=== PATIENT | male | born 1965 | race Caucasian/White ===

== ENCOUNTER 2016-06-15 15:27 | Emergency (ER) | payer MEDICAID ==
[~2016-06-15] VITALS: Ht 185.4 cm; Wt 60.0 kg
[~2016-06-15 15:27] MED LIST: PROM25TA5 PO
[2016-06-15 15:29] VITALS: PULSE 97; RESP 16; TEMP 98; O2SAT 94
[2016-06-15] MEDS ORDERED: KETOROLAC TROMETHAMINE 60 MG/2 ML (IM) VIAL IM ONE (15:45)
--- NOTE | 2016-06-15 15:48 | PD ---
HPI Chief Complaint: Respiratory Symptoms Time Seen by Provider: 15:35 Travel History International Travel<30 days: No Contact w/Intl Traveler<30days: No Traveled to known affect area: No History of Present Illness HPI Unusual 51-year-old man presents emergent department with multiple complaints. He states he's been "disabled" since from headaches nausea vomiting trouble breathing. He smokes about a pack of cigarettes a day. He states he been diagnosed with schizophrenia in the past. He states since May the headaches have gotten more frequent, more persistent, with shortness of breath and nausea. He was seen in the emergency department at the end of May and had labs done x-rays done and was given a prescription for nausea medicine. He states he still having symptoms. The been progressive. It's worse and is typically had it together 49 years of his life. History Past Medical History Narrative Medical Asthma Hypertension Headache Patient states she had some tenderness skin cancer on his rectum and colon Social History Alcohol Use: Yes (states occ) Tobacco Use: Yes (CIGARETTES, 1 PPD) Allergies-Medications (Allergen,Severity, Reaction): Coded Allergies: No Known Allergies (Verified , 06/15/16) Reported Meds & Prescriptions Reported Meds & Active Scripts Active Phenergan (Promethazine HCl) 25 Mg Tab 25 Mg PO Q6H PRN Review of Systems Except as stated in HPI: all other systems reviewed are Neg Physical Exam Narrative GENERAL: Disheveled bizarre 51-year-old man, no acute distress. SKIN: Warm and dry. HEAD: Atraumatic. Normocephalic. CARDIOVASCULAR: Regular rate and rhythm. No murmur appreciated. RESPIRATORY: Normal rate and effort. Mild diffuse wheezing. GASTROINTESTINAL: Abdomen soft, non-tender, nondistended. Hepatic and splenic margins not palpable. MUSCULOSKELETAL: No obvious deformities. No edema. NEUROLOGICAL: Awake and alert. No obvious cranial nerve deficits. Motor grossly within normal limits. Normal speech. Data Data Last Documented VS Vital Signs Date Time Temp Pulse Resp B/P Pulse Ox O2 Delivery O2 Flow Rate FiO2 06/15/16 15:40 99 16 96 Room Air 06/15/16 15:29 98.0 MDM Medical Decision Making Medical Screen Exam Complete: Yes Emergency Medical Condition: Yes Differential Diagnosis Headaches, asthma, COPD, other Narrative Course Medical decision making 51-year-old male presents emergency Department with acute on chronic headaches, shortness of breath, nausea. He looks fine. His minimal wheezing. He is still smoking. Chest x-ray previously showed some COPD changes. Is asking for something for his headache and for nausea. Diagnosis Primary Impression: Headache Qualified Code: R51 - Chronic nonintractable headache, unspecified headache type Additional Impression: Nausea Additional Instructions: Take Naprosyn as needed for headache. Use Zofran as needed for nausea or vomiting. Stop smoking. Med/Other Pt SpecificInfo: Prescription(s) given Disposition: 01 DISCHARGE HOME Condition: Stable Devon Olsen MD Jun 15, 2016 15:48
[2016-06-15] MEDS ORDERED: ZOFR4TAB3 SL (15:49)
[2016-06-15] MEDS ORDERED: NAPR500 PO (15:49)
== END 2016-06-15 16:09 | disposition home or self-care (01) ==
LOC: PHED 15:27
DX: R51 Headache (principal); I10 Essential (primary) hypertension; F17.210 Nicotine dependence, cigarettes, uncomplicated
CPT/HCPCS: 96372; 99283; J1885

== ENCOUNTER 2016-07-03 19:21 | Emergency (ER) | payer MEDICAID ==
[~2016-07-03] VITALS: Ht 185.4 cm; Wt 60.3 kg
[~2016-07-03 19:21] MED LIST changes: +NAPR500 PO; +ZOFR4TAB3 SL
[2016-07-03 19:40] VITALS: BP 147/114; PULSE 98; RESP 20; TEMP 97.7; O2SAT 99
[2016-07-03] MEDS ORDERED: SODIUM CHLOR 0.9% 1000 ML INJ 1,000 ML IV SCH ×2 (20:24→21:15)
--- NOTE | 2016-07-03 20:24 | PD ---
HPI Chief Complaint: GI Complaint Time Seen by Provider: 20:21 Travel History International Travel<30 days: No Contact w/Intl Traveler<30days: No Traveled to known affect area: No History of Present Illness HPI The patient is a 51-year-old homeless male alcoholic who states he has had generalized weakness and nausea for 3 months. It is cold outside and he came into the emergency room, likely to warm up. He has not been vomiting today. He denies any abdominal pain this time. PFSH Past Medical History Hx Anticoagulant Therapy: Yes (81mg asa) Asthma: Yes Anxiety: Yes Depression: Yes Cancer: Yes (colorectal; lung) Cardiovascular Problems: Yes (HTN) Cerebrovascular Accident: Yes (tia 1989) Diminished Hearing: No Headaches: Yes Hypertension: Yes Respiratory: Yes (lung ca; asthma) Immunizations Current: Yes Past Surgical History Appendectomy: Yes Social History Alcohol Use: Yes (states occ) Tobacco Use: Yes (CIGARETTES, 1 PPD) Substance Use: No Allergies-Medications (Allergen,Severity, Reaction): Coded Allergies: No Known Allergies (Verified , 07/03/16) Reported Meds & Prescriptions Reported Meds & Active Scripts Active Phenergan (Promethazine HCl) 25 Mg Tab 25 Mg PO Q6H PRN Review of Systems Except as stated in HPI: all other systems reviewed are Neg Physical Exam Narrative GENERAL: The patient is alert, oriented 3 in no apparent distress. His vital signs show blood pressure 147/114 but otherwise normal. He smells slightly of beer and strongly of tobacco. He does not appear clinically intoxicated. SKIN: Warm and dry. HEAD: Atraumatic. Normocephalic. EYES: Pupils equal and round. No scleral icterus. No injection or drainage. ENT: No nasal bleeding or discharge. Mucous membranes pink and moist. NECK: Trachea midline. No JVD. CARDIOVASCULAR: Regular rate and rhythm. No murmur appreciated. RESPIRATORY: No accessory muscle use. Clear to auscultation. Breath sounds equal bilaterally. GASTROINTESTINAL: Abdomen soft, non-tender, nondistended. Hepatic and splenic margins not palpable. No guarding or rebound is present. MUSCULOSKELETAL: No obvious deformities. No clubbing. No cyanosis. No edema. NEUROLOGICAL: Awake and alert. No obvious cranial nerve deficits. Motor grossly within normal limits. Normal speech. PSYCHIATRIC: Appropriate mood and affect; insight and judgment normal. Data Data Last Documented VS Vital Signs Date Time Temp Pulse Resp B/P Pulse Ox O2 Delivery O2 Flow Rate FiO2 07/03/16 21:47 82 18 106/67 98 Room Air 07/03/16 19:40 97.7 Orders Alcohol (Ethanol) (07/03/16 20:24) Complete Blood Count With Diff (07/03/16 20:24) Comprehensive Metabolic Panel (07/03/16 20:24) Thiamine Inj (Thiamine Inj) (07/03/16 20:30) Sodium Chlor 0.9% 1000 Ml Inj (Ns 1000 M (07/03/16 20:24) Sodium Chlor 0.9% 1000 Ml Inj (Ns 1000 M (07/03/16 21:15) Prochlorperazine Inj (Compazine Inj) (07/03/16 21:30) Lipase (07/03/16 20:30) Labs Laboratory Tests Test 07/03/16 20:30 White Blood Count 6.4 TH/MM3 Red Blood Count 4.91 MIL/MM3 Hemoglobin 15.3 GM/DL Hematocrit 44.3 % Mean Corpuscular Volume 90.2 FL Mean Corpuscular Hemoglobin 31.2 PG Mean Corpuscular Hemoglobin 34.6 % Concent Red Cell Distribution Width 12.1 % Platelet Count 277 TH/MM3 Mean Platelet Volume 6.6 FL Neutrophils (%) (Auto) 70.4 % Lymphocytes (%) (Auto) 16.1 % Monocytes (%) (Auto) 10.1 % Eosinophils (%) (Auto) 2.9 % Basophils (%) (Auto) 0.5 % Neutrophils # (Auto) 4.6 TH/MM3 Lymphocytes # (Auto) 1.0 TH/MM3 Monocytes # (Auto) 0.6 TH/MM3 Eosinophils # (Auto) 0.2 TH/MM3 Basophils # (Auto) 0.0 TH/MM3 CBC Comment DIFF FINAL Differential Comment Sodium Level 136 MEQ/L Potassium Level 3.7 MEQ/L Chloride Level 98 MEQ/L Carbon Dioxide Level 29.4 MEQ/L Anion Gap 9 MEQ/L Blood Urea Nitrogen 2 MG/DL Creatinine 0.52 MG/DL Estimat Glomerular Filtration 169 ML/MIN Rate Random Glucose 88 MG/DL Calcium Level 8.1 MG/DL Total Bilirubin 0.6 MG/DL Aspartate Amino Transf 16 U/L (AST/SGOT) Alanine Aminotransferase 14 U/L (ALT/SGPT) Alkaline Phosphatase 89 U/L Total Protein 6.1 GM/DL Albumin 2.9 GM/DL Lipase 100 U/L Ethyl Alcohol Level 19 MG/DL MDM Medical Decision Making Medical Screen Exam Complete: Yes Emergency Medical Condition: Yes Medical Record Reviewed: Yes Interpretation(s) The complete metabolic profile shows a calcium of 8.1 and total protein of 6.1 and albumen of 2.9 but is otherwise unremarkable. The CBC is normal. Alcohol level is only 19. The lipase is normal. Differential Diagnosis Alcohol intoxication, pancreatitis, electrolyte disorder, malingering to obtain a hospital bed, gastritis Narrative Course The patient appears to have a gastritis. He will be given Phenergan for nausea. He has been hydrated with saline here tonight. He will need to stay away from alcohol. Diagnosis Primary Impression: Alcoholic gastritis Additional Impression: Alcohol abuse Additional Instructions: Discontinue alcohol. Alcohol irritates your stomach and reduces its resistance to stomach acid. Follow-up with a primary care physician next week. If worse, return to emergency department. Med/Other Pt SpecificInfo: Prescription(s) given Scripts Promethazine (Phenergan)25 Mg Tab25 Mg PO Q6H PRN (Nausea/Vomiting) #28 TAB Ref 0 Prov:Danielito Vargas MD 07/03/16 Disposition: 01 DISCHARGE HOME Condition: Stable Danielito Vargas MD Jul 03, 2016 20:23
[2016-07-03] MEDS ORDERED: THIAMINE INJ 100 MG in SODIUM CHLORIDE 0.9% INJ 100 ML IV ONE (20:30)
[2016-07-03 20:42] LABS: AUTOMATED NEUTROPHIL # 4.6 TH/MM3 (1.8-7.7); BASOPHIL % 0.5 % (0.0-2.0); EOSINOPHIL # 0.2 TH/MM3 (0-0.4); EOSINOPHIL % 2.9 % (0.0-4.0); HEMATOCRIT 44.3 % (39.0-51.0); HEMO FLAGS DIFF FINAL; LYMPH % 16.1 % (9.0-44.0); MEAN CELL VOLUME 90.2 FL (80.0-100.0); MEAN CORPUSCULAR HEMOGLOBIN 31.2 PG (27.0-34.0); MEAN CORPUSCULAR HGB CONC 34.6 % (32.0-36.0); MONO % 10.1 % (0.0-8.0); NEUT % 70.4 % (16.0-70.0); PLATELET COUNT 277 TH/MM3 (150-450); RED BLOOD COUNT 4.91 MIL/MM3 (4.50-5.90); RED CELL DISTRIBUTION WIDTH 12.1 % (11.6-17.2); WHITE BLOOD COUNT 6.4 TH/MM3 (4.0-11.0)
[2016-07-03 20:46] VITALS: BP 104/66; PULSE 90; RESP 18; O2SAT 98
[2016-07-03 20:49] LABS: CHLORIDE 98 MEQ/L (98-107); POTASSIUM 3.7 MEQ/L (3.5-5.1); SODIUM (NA) 136 MEQ/L (136-145)
[2016-07-03 20:53] LABS: ANION GAP 9 MEQ/L (5-15); BICARBONATE 29.4 MEQ/L (21.0-32.0); BLOOD UREA NITROGEN 2 MG/DL (7-18)
[2016-07-03 20:56] LABS: ALT (GPT) 14 U/L (12-78); AST (GOT) 16 U/L (15-37); GLOMERULAR FILTRATION RATE 169 ML/MIN (>89)
[2016-07-03 20:57] LABS: TOTAL BILIRUBIN ADULT 0.6 MG/DL (0.2-1.0)
[2016-07-03 20:59] LABS: ALKALINE PHOSPHATASE 89 U/L (45-117)
[2016-07-03] MEDS ORDERED: PROCHLORPERAZINE INJ 10 MG/2 ML VIAL IVS ONE (21:30)
[2016-07-03] MEDS ORDERED: PROM25TA5 PO (21:34)
[2016-07-03 21:47] VITALS: BP 106/67; PULSE 82; RESP 18; O2SAT 98
== END 2016-07-03 22:08 | disposition home or self-care (01) ==
LOC: PHED 19:21
DX: K29.20 Alcoholic gastritis without bleeding (principal); F10.10 Alcohol abuse, uncomplicated; I10 Essential (primary) hypertension; F17.200 Nicotine dependence, unspecified, uncomplicated; Z59.0 Homelessness; Z79.82 Long term (current) use of aspirin; Z87.09 Personal history of other diseases of the respiratory system; Z86.59 Personal history of other mental and behavioral disorders; Z86.73 Personal history of transient ischemic attack (TIA), and cerebral infarction without residual deficits; Z85.038 Personal history of other malignant neoplasm of large intestine; Z85.118 Personal history of other malignant neoplasm of bronchus and lung
CPT/HCPCS: 80053; 80320; 83690; 85025; 96361; 96365; 96375; 99284; J0780; J3411; J7030

== ENCOUNTER 2016-12-10 13:30 | Emergency (ER) | payer MEDICAID ==
[~2016-12-10] VITALS: Ht 185.4 cm; Wt 53.0 kg
[~2016-12-10 13:30] MED LIST changes: -NAPR500 PO; -ZOFR4TAB3 SL
[2016-12-10 13:37] VITALS: BP 109/64; PULSE 92; RESP 16; TEMP 98.3; O2SAT 97
--- NOTE | 2016-12-10 14:12 | PD ---
HPI Chief Complaint: Respiratory Symptoms Time Seen by Provider: 14:11 Travel History International Travel<30 days: No Contact w/Intl Traveler<30days: No Traveled to known affect area: No History of Present Illness HPI Patient presents for prescription refill. States he is a chronic cough which he takes an albuterol MDI for, continues to smoke. Reports a past medical history of asthma, headaches, colorectal and lung cancer, history of TIA, depression and hypertension. Also requesting Fioricet for headache, Zofran for nausea and Naprosyn for general aches and pains. States she's been out of his medications for several months. He does not see a doctor regularly. PFSH Past Medical History Hx Anticoagulant Therapy: Yes (81mg asa) Asthma: Yes Anxiety: Yes Depression: Yes Cancer: Yes (colorectal; lung) Cardiovascular Problems: Yes (HTN) Cerebrovascular Accident: Yes (tia 1989) Diminished Hearing: No Headaches: Yes Hypertension: Yes Respiratory: Yes (asthma) Immunizations Current: Yes Tetanus Vaccination: < 5 Years Influenza Vaccination: Yes ?: Not Past Surgical History Appendectomy: Yes Social History Alcohol Use: Yes (states occ) Tobacco Use: Yes (CIGARETTES, 1 PPD) Substance Use: No Allergies-Medications (Allergen,Severity, Reaction): Coded Allergies: No Known Allergies (Verified , 12/10/16) Reported Meds & Prescriptions Reported Meds & Active Scripts Active Review of Systems General / Constitutional: No: Fever Eyes: No: Visual changes HENT: Positive: Headaches Cardiovascular: No: Chest Pain or Discomfort Respiratory: No: Shortness of Breath Gastrointestinal: Positive: Nausea, No: Abdominal Pain Genitourinary: No: Dysuria Musculoskeletal: No: Pain Skin: No Rash Neurologic: No: Weakness Psychiatric: No: Depression Endocrine: No: Polydipsia Hematologic/Lymphatic: No: Easy Bruising Physical Exam Narrative GENERAL: Poorly nourished, poorly developed patient. Disheveled and ungroomed, unkempt SKIN: Focused skin assessment warm/dry. HEAD: Normocephalic. EYES: No scleral icterus. No injection or drainage. NECK: Supple, trachea midline. No JVD or lymphadenopathy. CARDIOVASCULAR: Regular rate and rhythm without murmurs, gallops, or rubs. RESPIRATORY: Poor breath sounds. No accessory muscle use. GASTROINTESTINAL: Abdomen soft, non-tender, nondistended. MUSCULOSKELETAL: No cyanosis, or edema. BACK: Nontender without obvious deformity. No CVA tenderness. Data Data Last Documented VS Vital Signs Date Time Temp Pulse Resp B/P Pulse Ox O2 Delivery O2 Flow Rate FiO2 12/10/16 13:37 98.3 92 16 109/64 97 MDM Medical Decision Making Medical Screen Exam Complete: Yes Emergency Medical Condition: Yes Differential Diagnosis Failure to thrive, progressive colon and lung cancer, medication refill Narrative Course Assessment and plan discussed with patient at bedside Diagnosis Primary Impression: Headache Qualified Code: R51 - Nonintractable headache, unspecified chronicity pattern , unspecified headache type Additional Impression: Nausea Patient Instructions: General Instructions Additional Instructions: Patient doesn't appear as if he is seeking help if the past medical history is correct. Discussed several options to him if the cancer progresses and is no longer able to take care of himself. Encouraged to return to emergency room with any onset of new symptoms. Med/Other Pt SpecificInfo: Prescription(s) given Scripts Promethazine (Phenergan)25 Mg Oqdspe45 Mg PO Q6H PRN (NAUSEA OR VOMITING) #30 TAB Ref 1 Prov:Laith Singleton MD 12/10/16 Tniiqunrka-Ebcztdopmogov-Naspmzyc (Fioricet)50-300-40 Mg Cap1-2 Cap PO Q6H PRN ( HEADACHE) #30 CAP Ref 1 Prov:Laith Singleton MD 12/10/16 Albuterol 18 GM Inh (Ventolin Hfa 18 GM Inh)90 Mcg/Act Aer2 Puff INH Q4-6H PRN ( SHORTNESS OF BREATH) #1 INHALER Ref 3 Prov:Laith Singleton MD 12/10/16 Disposition: 01 DISCHARGE HOME Condition: Good Laith Singleton MD Dec 10, 2016 14:12
[2016-12-10] MEDS ORDERED: VENTAER INH (14:24)
[2016-12-10] MEDS ORDERED: BUTA1CAP PO (14:24)
[2016-12-10] MEDS ORDERED: PROM25TA10 PO (14:24)
== END 2016-12-10 14:54 | disposition home or self-care (01) ==
LOC: PHED 13:30
DX: R51 Headache (principal); R11.0 Nausea; M79.1 Myalgia; R05 Cough; I10 Essential (primary) hypertension; F17.200 Nicotine dependence, unspecified, uncomplicated; Z79.82 Long term (current) use of aspirin; Z87.09 Personal history of other diseases of the respiratory system; Z86.59 Personal history of other mental and behavioral disorders; Z85.038 Personal history of other malignant neoplasm of large intestine; Z86.79 Personal history of other diseases of the circulatory system; Z76.0 Encounter for issue of repeat prescription
CPT/HCPCS: 99284

== ENCOUNTER 2017-03-19 18:04 | Emergency (ER) | payer MEDICAID ==
[~2017-03-19] VITALS: Ht 185.4 cm; Wt 59.6 kg
[~2017-03-19 18:04] MED LIST changes: +BUTA1CAP PO; +PROM25TA10 PO; -PROM25TA5 PO; +VENTAER INH
[2017-03-19 18:13] VITALS: BP 137/69; PULSE 97; RESP 18; TEMP 98.6; O2SAT 95
[2017-03-19 19:11] VITALS: BP 119/78; PULSE 92; RESP 18; O2SAT 97
[2017-03-19] MEDS ORDERED: SODIUM CHLOR 0.9% 1000 ML INJ 1,000 ML IV SCH (19:14)
[2017-03-19] MEDS ORDERED: SODIUM CHLORIDE 0.9% FLUSH 10 ML FLUSH IVF PRN (19:15)
--- NOTE | 2017-03-19 19:19 | PD ---
HPI Chief Complaint: Respiratory Symptoms Time Seen by Provider: 19:08 Travel History International Travel<30 days: No Contact w/Intl Traveler<30days: No Traveled to known affect area: No History of Present Illness HPI The patient is a 52-year-old homeless alcoholic who also abuses tobacco at one pack a day and has a history of COPD who complains of shortness of breath for several months. He was just discharged from [facility] at the beginning of this month for COPD with acute exacerbation. He does not think he has had any fever. He states his last drink was beer this afternoon. He also complains of dizziness. He denies any chest pain. He does have a history of alcohol gastritis. PFSH Past Medical History Hx Anticoagulant Therapy: Yes (81mg asa) Asthma: Yes Anxiety: Yes Depression: Yes Cancer: Yes (colorectal; lung) Cardiovascular Problems: Yes (HTN) Cerebrovascular Accident: Yes (tia 1989) Diminished Hearing: No Headaches: Yes Hypertension: Yes Respiratory: Yes (asthma) Immunizations Current: Yes Past Surgical History Appendectomy: Yes Social History Alcohol Use: Yes (states [facility]) Tobacco Use: Yes (CIGARETTES, 1 PPD) Substance Use: No Allergies-Medications (Allergen,Severity, Reaction): Coded Allergies: No Known Allergies (Verified , 03/19/17) Reported Meds & Prescriptions Reported Meds & Active Scripts Active Ventolin Hfa 18 GM Inh (Albuterol Sulfate) 90 Mcg/Act Aer 2 Puff INH Q4-6H PRN Review of Systems Except as stated in HPI: all other systems reviewed are Neg Physical Exam Narrative GENERAL: The patient is alert, oriented 3, smells slightly of beer and tobacco. His vital signs are normal. SKIN: Focused skin assessment warm/dry. HEAD: Atraumatic. Normocephalic. EYES: Pupils equal and round. No scleral icterus. No injection or drainage. ENT: No nasal bleeding or discharge. Mucous membranes pink and moist. NECK: Trachea midline. No JVD. CARDIOVASCULAR: Regular rate and rhythm. No murmur appreciated. RESPIRATORY: No accessory muscle use. Scattered rhonchi are heard bilaterally in all lung [place]. Breath sounds equal bilaterally. GASTROINTESTINAL: Abdomen soft, non-tender, nondistended. Hepatic and splenic margins not palpable. No guarding or rebound is present. MUSCULOSKELETAL: No obvious deformities. No clubbing. No cyanosis. No edema. NEUROLOGICAL: Awake and alert. No obvious cranial nerve deficits. Motor grossly within normal limits. Normal speech. PSYCHIATRIC: Appropriate mood and affect; insight and judgment normal. Data Data Last Documented VS Vital Signs Date Time Temp Pulse Resp B/P (MAP) Pulse Ox O2 Delivery O2 Flow Rate FiO2 03/19/17 19:56 92 16 108/72 (84) 96 Room Air 03/19/17 18:13 98.6 Orders Orders Complete Blood Count With Diff (03/19/17 19:14) Comprehensive Metabolic Panel (03/19/17 19:14) Magnesium (Mg) (03/19/17 19:14) Urinalysis - C+S If Indicated (03/19/17 19:14) Iv Access Insert/Monitor (03/19/17 19:14) Ecg Monitoring (03/19/17 19:14) Oximetry (03/19/17 19:14) Oxygen Administration (03/19/17 19:14) Chest, Pa & Lat (03/19/17 19:14) Sodium Chloride 0.9% Flush (Ns Flush) (03/19/17 19:15) Albuterol-Ipratropium Neb (Duoneb Neb) (03/19/17 19:15) Lipase (03/19/17 19:14) Sodium Chlor 0.9% 1000 Ml Inj (Ns 1000 M (03/19/17 19:14) Alcohol (Ethanol) (03/19/17 19:14) Labs Laboratory Tests Test 03/19/17 19:36 White Blood Count 7.8 TH/MM3 Red Blood Count 4.77 MIL/MM3 Hemoglobin 14.7 GM/DL Hematocrit 43.4 % Mean Corpuscular Volume 91.1 FL Mean Corpuscular Hemoglobin 30.8 PG Mean Corpuscular Hemoglobin Concent 33.8 % Red Cell Distribution Width 13.7 % Platelet Count 168 TH/MM3 Mean Platelet Volume 6.9 FL Neutrophils (%) (Auto) 57.0 % Lymphocytes (%) (Auto) 24.8 % Monocytes (%) (Auto) 12.2 % Eosinophils (%) (Auto) 1.6 % Basophils (%) (Auto) 4.4 % Neutrophils # (Auto) 4.5 TH/MM3 Lymphocytes # (Auto) 1.9 TH/MM3 Monocytes # (Auto) 1.0 TH/MM3 Eosinophils # (Auto) 0.1 TH/MM3 Basophils # (Auto) 0.3 TH/MM3 CBC Comment DIFF FINAL Differential Comment Urine Color YELLOW Urine Turbidity CLEAR Urine pH 7.0 Urine Specific [place] 1.005 Urine Protein NEG mg/dL Urine Glucose (UA) NEG mg/dL Urine Ketones NEG mg/dL Urine Occult Blood NEG Urine Nitrite NEG Urine Bilirubin NEG Urine Leukocyte Esterase NEG Urine Squamous Epithelial Cells 0-5 /hpf Microscopic Urinalysis Comment CULT NOT INDICATED Blood Urea Nitrogen 2 MG/DL Creatinine 0.48 MG/DL Random Glucose 75 MG/DL Total Protein 7.1 GM/DL Albumin 3.4 GM/DL Calcium Level 8.8 MG/DL Magnesium Level 2.0 MG/DL Alkaline Phosphatase 103 U/L Aspartate Amino Transf (AST/SGOT) 24 U/L Alanine Aminotransferase (ALT/SGPT) 23 U/L Total Bilirubin 1.7 MG/DL Sodium Level 130 MEQ/L Potassium Level 3.8 MEQ/L Chloride Level 94 MEQ/L Carbon Dioxide Level 26.1 MEQ/L Anion Gap 10 MEQ/L Estimat Glomerular Filtration Rate 184 ML/MIN Lipase 161 U/L Ethyl Alcohol Level 45 MG/DL [facility] Medical Decision Making Medical Screen Exam Complete: Yes Emergency Medical Condition: Yes Medical Record Reviewed: Yes Interpretation(s) The chest x-ray shows hyperinflation with bullous changes which are stable, no acute disease. The urinalysis is normal. The CBC is normal. The complete metabolic profile shows a sodium of 1:30, total bilirubin 1.7 but is otherwise normal. The alcohol level is 45. The lipase is normal. Differential Diagnosis COPD with acute exacerbation, alcohol intoxication, hypoxemia, hypomagnesemia, electrolyte disorder, malingering to obtain bed Narrative Course The patient has COPD with acute exacerbation. He is likely also malingering to obtain a bed. While he was asleep his oximetry was 98% on room air. He continues to abuse alcohol and tobacco. He will need to discontinue both. He also needs to follow-up with a primary care physician. Diagnosis Primary Impression: COPD exacerbation Additional Impressions: Alcohol abuse Malingering Additional Instructions: You should try to discontinue alcohol and tobacco. You should also follow-up with a primary care physician. Med/Other Pt SpecificInfo: No Change to Meds Disposition: 01 DISCHARGE HOME Condition: Stable Danielito Vargas MD Mar 19, 2017 19:19
[2017-03-19] MEDS: RESP: ALBUTEROL 2.5 MG/IPRATROPIUM 0.5 MG NEB (SCH) INH ×3 (19:24→19:46)
[2017-03-19 19:56] VITALS: BP 108/72; PULSE 92; RESP 16; O2SAT 96
[2017-03-19 20:11] LABS: AUTOMATED NEUTROPHIL # 4.5 TH/MM3 (1.8-7.7); BASOPHIL # 0.3 TH/MM3 (0-0.2); BASOPHIL % 4.4 % (0.0-2.0); EOSINOPHIL # 0.1 TH/MM3 (0-0.4); EOSINOPHIL % 1.6 % (0.0-4.0); HEMATOCRIT 43.4 % (39.0-51.0); HEMO FLAGS DIFF FINAL; LYMPH % 24.8 % (9.0-44.0); LYMPHOCYTE # 1.9 TH/MM3 (1.0-4.8); MEAN CELL VOLUME 91.1 FL (80.0-100.0); MEAN CORPUSCULAR HEMOGLOBIN 30.8 PG (27.0-34.0); MEAN CORPUSCULAR HGB CONC 33.8 % (32.0-36.0); MONO % 12.2 % (0.0-8.0); PLATELET COUNT 168 TH/MM3 (150-450); RED BLOOD COUNT 4.77 MIL/MM3 (4.50-5.90); RED CELL DISTRIBUTION WIDTH 13.7 % (11.6-17.2); WHITE BLOOD COUNT 7.8 TH/MM3 (4.0-11.0)
[2017-03-19 20:13] LABS: BLOOD, URINE NEG (NEG); GLUCOSE,URINE NEG (NEG); KETONE, URINE NEG (NEG); NITRITE,URINE NEG (NEG)
[2017-03-19 20:18] LABS: CHLORIDE 94 MEQ/L (98-107); POTASSIUM 3.8 MEQ/L (3.5-5.1); SODIUM (NA) 130 MEQ/L (136-145)
[2017-03-19 20:19] LABS: URINE COLOR YELLOW (YELLW/STRAW)
--- NOTE | 2017-03-19 20:20 | RADRPT ---
EXAM DATE/TIME: 03/19/2017 19:27 [facility] COMPARISON: CHEST PA & LAT, June 02, 2016, 22:54. INDICATIONS : Short of breath. Congestion. MEDICAL HISTORY : Chronic obstructive pulmonary disease. Emphysema. Hypertension. Skin cancer . Carcinoma, lung. SURGICAL HISTORY : Appendectomy. ENCOUNTER: Initial ACUITY: 3 days PAIN SCORE: 0/10 LOCATION: Bilateral chest FINDINGS: PA and lateral views of the chest demonstrate the lungs to be markedly hyperinflated COPD with bullou s changes in the left lung without evidence of mass, infiltrate or effusion. The cardiomediastinal c ontours are unremarkable. Osseous structures are intact. CONCLUSION: on March 19, 2017 at 20:18 No acute disease. No significant change has occurred. Marked hyperinflation with bullous changes which are stable Board Certified Radiologist. This report was verified electronically.
[2017-03-19 20:22] LABS: ANION GAP 10 MEQ/L (5-15); BICARBONATE 26.1 MEQ/L (21.0-32.0); BLOOD UREA NITROGEN 2 MG/DL (7-18)
[2017-03-19 20:23] LABS: COMMENT (UR) CULT NOT INDICATED; CULTURE IF INDICATED CULT NOT INDICATED; SQUAMOUS EPITHELIAL CELL URINE 0-5 /hpf (0-5)
[2017-03-19 20:25] LABS: ALT (GPT) 23 U/L (12-78); AST (GOT) 24 U/L (15-37); GLOMERULAR FILTRATION RATE 184 ML/MIN (>89)
[2017-03-19 20:26] LABS: ALCOHOL 45 MG/DL (0-5); TOTAL BILIRUBIN ADULT 1.7 MG/DL (0.2-1.0)
[2017-03-19 20:28] LABS: ALKALINE PHOSPHATASE 103 U/L (45-117)
[2017-03-19 20:53] VITALS: BP 118/70
== END 2017-03-19 21:01 | disposition home or self-care (01) ==
LOC: PHED 18:04
DX: J44.1 Chronic obstructive pulmonary disease with (acute) exacerbation (principal); F17.210 Nicotine dependence, cigarettes, uncomplicated; F10.10 Alcohol abuse, uncomplicated; Y90.2 Blood alcohol level of 40-59 mg/100 ml
CPT/HCPCS: 71020; 80053; 80307; 81001; 83690; 83735; 85025; 94640; 94664; 96360; 99284; J7030

== ENCOUNTER 2017-06-27 17:05 | Emergency (ER) | payer MEDICAID ==
[~2017-06-27] VITALS: Ht 185.4 cm; Wt 61.0 kg
[~2017-06-27 17:05] MED LIST changes: -BUTA1CAP PO; -PROM25TA10 PO
[2017-06-27 17:11] VITALS: BP 106/72; PULSE 82; RESP 16; TEMP 97.7; O2SAT 94
--- NOTE | 2017-06-27 18:54 | PD ---
HPI Chief Complaint: Headache Time Seen by Provider: 18:48 Travel History International Travel<30 days: No Contact w/Intl Traveler<30days: No Traveled to known affect area: No History of Present Illness HPI 52-year-old male here with complaints of headache, cough, generalized malaise. He tells me he was seen by emergency physician at [facility] and was told that he has fluid on his lungs and that he should be on an antibiotic, however he is not taking this medication. He tells me that he has had a headache for 2 weeks and he has tried drinking alcohol to help with his headaches, however this is not working. No fevers. No trauma. No chest pain or dyspnea. No abdominal pain. Denies illicit drug use. PFSH Past Medical History Hx Anticoagulant Therapy: No Asthma: Yes Anxiety: Yes Depression: Yes Cancer: Yes (colorectal; lung) Cardiovascular Problems: Yes Cerebrovascular Accident: Yes (tia 1989) Diminished Hearing: No Headaches: Yes Hypertension: Yes Respiratory: Yes (asthma) Immunizations Current: Yes Past Surgical History Appendectomy: Yes Social History Alcohol Use: Yes ([facility]) Tobacco Use: Yes (CIGARETTES, 1 PPD) Substance Use: No Allergies-Medications (Allergen,Severity, Reaction): Coded Allergies: No Known Allergies (Verified Adverse Reaction, Unknown, 06/27/17) Reported Meds & Prescriptions Reported Meds & Active Scripts Active Ventolin Hfa 18 GM Inh (Albuterol Sulfate) 90 Mcg/Act Aer 2 Puff INH Q4-6H PRN Review of Systems Except as stated in HPI: all other systems reviewed are Neg Physical Exam Narrative GENERAL: Well-developed, well-nourished, disheveled, comfortable, no apparent distress. SKIN: Focused skin assessment warm/dry. HEAD: Atraumatic. Normocephalic. EYES: Pupils equal, round, 3 mm, reactive to light. EOMI. No scleral icterus. No injection or drainage. ENT: No nasal bleeding or discharge. Mucous membranes pink and moist. NECK: Trachea midline. No JVD. No nuchal rigidity. CARDIOVASCULAR: Regular rate and rhythm. RESPIRATORY: No accessory muscle use. Clear to auscultation. Breath sounds equal bilaterally. GASTROINTESTINAL: Abdomen soft, non-tender, nondistended. MUSCULOSKELETAL: No obvious deformities. No clubbing. No cyanosis. No edema. NEUROLOGICAL: Awake and alert. No obvious cranial nerve deficits. Motor grossly within normal limits. Normal speech. No focal deficits. PSYCHIATRIC: Appropriate mood and affect; insight and judgment normal. Data Data Last Documented VS Vital Signs Date Time Temp Pulse Resp B/P (MAP) Pulse Ox O2 Delivery O2 Flow Rate FiO2 06/27/17 22:30 81 16 121/79 (93) 96 Room Air 06/27/17 17:11 97.7 Orders Orders Complete Blood Count With Diff (06/27/17 18:51) Comprehensive Metabolic Panel (06/27/17 18:51) Prothrombin Time / Inr (Pt) (06/27/17 18:51) Act Partial Throm Time (Ptt) (06/27/17 18:51) Iv Access Insert/Monitor (06/27/17 18:51) Ecg Monitoring (06/27/17 18:51) Oximetry (06/27/17 18:51) Sodium Chloride 0.9% Flush (Ns Flush) (06/27/17 19:00) Alcohol (Ethanol) (06/27/17 18:51) Ct Brain W/O Iv Contrast(Rout) (06/27/17 ) Ketorolac Inj (Toradol Inj) (06/27/17 19:00) Metoclopramide Inj (Reglan Inj) (06/27/17 19:00) Influenzae A/B Antigen (06/27/17 18:51) Sodium Chlor 0.9% 1000 Ml Inj (Ns 1000 M (06/27/17 19:45) Chest, Single Ap (06/27/17 ) Sodium Chlor 0.9% 1000 Ml Inj (Ns 1000 M (06/27/17 21:30) Basic Metabolic Panel (Bmp) (06/27/17 21:19) Ed Discharge Order (06/27/17 23:09) Labs Laboratory Tests Test 06/27/17 19:20 06/27/17 22:25 White Blood Count 8.8 TH/MM3 Red Blood Count 4.96 MIL/MM3 Hemoglobin 14.9 GM/DL Hematocrit 44.6 % Mean Corpuscular Volume 90.0 FL Mean Corpuscular Hemoglobin 30.0 PG Mean Corpuscular Hemoglobin Concent 33.3 % Red Cell Distribution Width 12.1 % Platelet Count 270 TH/MM3 Mean Platelet Volume 6.6 FL Neutrophils (%) (Auto) 77.6 % Lymphocytes (%) (Auto) 12.1 % Monocytes (%) (Auto) 7.4 % Eosinophils (%) (Auto) 1.8 % Basophils (%) (Auto) 1.1 % Neutrophils # (Auto) 6.8 TH/MM3 Lymphocytes # (Auto) 1.1 TH/MM3 Monocytes # (Auto) 0.6 TH/MM3 Eosinophils # (Auto) 0.2 TH/MM3 Basophils # (Auto) 0.1 TH/MM3 CBC Comment DIFF FINAL Differential Comment Prothrombin Time 10.9 SEC Prothromb Time International Ratio 1.1 RATIO Activated Partial Thromboplast Time 29.9 SEC Blood Urea Nitrogen 3 MG/DL 2 MG/DL Creatinine 0.48 MG/DL 0.50 MG/DL Random Glucose 77 MG/DL 70 MG/DL Total Protein 6.7 GM/DL Albumin 3.3 GM/DL Calcium Level 8.4 MG/DL 7.7 MG/DL Alkaline Phosphatase 101 U/L Aspartate Amino Transf (AST/SGOT) 28 U/L Alanine Aminotransferase (ALT/SGPT) 21 U/L Total Bilirubin 0.8 MG/DL Sodium Level 127 MEQ/L 130 MEQ/L Potassium Level 3.6 MEQ/L 4.0 MEQ/L Chloride Level 91 MEQ/L 98 MEQ/L Carbon Dioxide Level 25.6 MEQ/L 24.6 MEQ/L Anion Gap 10 MEQ/L 7 MEQ/L Estimat Glomerular Filtration Rate 184 ML/MIN 176 ML/MIN Ethyl Alcohol Level 85 MG/DL MDM Medical Decision Making Medical Screen Exam Complete: Yes Emergency Medical Condition: Yes Medical Record Reviewed: Yes Differential Diagnosis Tension headache, cluster headache, migraine headache, SAH/meningitis/ encephalitis less likely, influenza, pneumonia, pleural effusion, malingering Narrative Course Vital signs reviewed. CBC is unremarkable. CMP is remarkable for sodium 127, chloride 91, otherwise unremarkable. Alcohol level is 85. Hyponatremia is likely secondary to beer consumption. He was given 2 L normal saline IV and repeat sodium is 130. He is not altered, and has had hyponatremia in the past. Influenza is negative. CT head: Normal exam. Chest x-ray: Fibrotic changes in the lungs. Emphysema. No effusion or pneumothorax. Patient was given 2 L normal saline IV, IV Reglan, and IV Toradol, and on reassessment he is sleeping comfortably. He is in no acute distress. He is stable for discharge home with outpatient follow-up with a primary care physician this week. He was advised on when to return to the emergency department. He verbalizes understanding and agreement with plan. Diagnosis Primary Impression: Alcohol abuse Additional Impressions: Headache Qualified Codes: R51 - Headache Hyponatremia Referrals: [facility] 3 days Additional Instructions: Follow-up with a primary care physician this week. Return to the emergency department for worsening symptoms or any other concerns. Disposition: 01 DISCHARGE HOME Condition: Stable Adebayo Mcintosh MD Jun 27, 2017 18:54
[2017-06-27] MEDS ORDERED: METOCLOPRAMIDE HCL 10 MG/2 ML VIAL IV PUSH ONE (19:00)
[2017-06-27] MEDS ORDERED: SODIUM CHLORIDE 0.9% FLUSH 10 ML FLUSH IV FLUSH PRN (19:00)
[2017-06-27] MEDS ORDERED: KETOROLAC TROMETHAMINE 30 MG/ML (IVP) VIAL IV PUSH ONE (19:00)
[2017-06-27 19:04] VITALS: BP 126/81; PULSE 85; RESP 16; O2SAT 95
[2017-06-27 19:28] LABS: AUTOMATED NEUTROPHIL # 6.8 TH/MM3 (1.8-7.7); BASOPHIL # 0.1 TH/MM3 (0-0.2); BASOPHIL % 1.1 % (0.0-2.0); EOSINOPHIL # 0.2 TH/MM3 (0-0.4); EOSINOPHIL % 1.8 % (0.0-4.0); HEMATOCRIT 44.6 % (39.0-51.0); HEMOGLOBIN 14.9 GM/DL (13.0-17.0); LYMPH % 12.1 % (9.0-44.0); LYMPHOCYTE # 1.1 TH/MM3 (1.0-4.8); MEAN CORPUSCULAR HGB CONC 33.3 % (32.0-36.0); MEAN PLATELET VOLUME 6.6 FL (7.0-11.0); MONO % 7.4 % (0.0-8.0); MONOCYTE # 0.6 TH/MM3 (0-0.9); NEUT % 77.6 % (16.0-70.0); PLATELET COUNT 270 TH/MM3 (150-450); RED BLOOD COUNT 4.96 MIL/MM3 (4.50-5.90); RED CELL DISTRIBUTION WIDTH 12.1 % (11.6-17.2); WHITE BLOOD COUNT 8.8 TH/MM3 (4.0-11.0)
[2017-06-27 19:36] LABS: CHLORIDE 91 MEQ/L (98-107); SODIUM (NA) 127 MEQ/L (136-145)
[2017-06-27 19:39] LABS: ALBUMIN 3.3 GM/DL (3.4-5.0); CALCIUM 8.4 MG/DL (8.5-10.1)
[2017-06-27 19:40] LABS: BICARBONATE 25.6 MEQ/L (21.0-32.0); BLOOD UREA NITROGEN 3 MG/DL (7-18); GLUCOSE,RANDOM 77 MG/DL (74-106)
[2017-06-27 19:41] LABS: INTERNATIONAL NORMALIZED RATIO 1.1 RATIO; PROTHROMBIN TIME - PATIENT 10.9 SEC (9.8-11.6)
[2017-06-27 19:42] LABS: ALT (GPT) 21 U/L (12-78); AST (GOT) 28 U/L (15-37)
[2017-06-27 19:43] LABS: CREATININE 0.48 MG/DL (0.60-1.30); GLOMERULAR FILTRATION RATE 184 ML/MIN (>89)
[2017-06-27 19:44] LABS: TOTAL BILIRUBIN ADULT 0.8 MG/DL (0.2-1.0); TOTAL PROTEIN 6.7 GM/DL (6.4-8.2)
[2017-06-27 19:45] LABS: ALKALINE PHOSPHATASE 101 U/L (45-117)
[2017-06-27] MEDS ORDERED: SODIUM CHLOR 0.9% 1000 ML INJ 1,000 ML IV ONE ×2 (19:45→21:30)
[2017-06-27 20:10] VITALS: BP 104/63; PULSE 81; RESP 16; O2SAT 95
--- NOTE | 2017-06-27 20:54 | RADRPT ---
EXAM DATE/TIME: 06/27/2017 20:31 [facility] COMPARISON: No previous studies available for comparison. INDICATIONS : Cephalgia. RADIATION DOSE: 64.68 CTDIvol (mGy) MEDICAL HISTORY : Cerebrovascular disease. Hypertension. Carcinoma, lung. SURGICAL HISTORY : None. ENCOUNTER: Initial ACUITY: 1 day PAIN SCALE: 4/10 LOCATION: cranial TECHNIQUE: Multiple contiguous axial images were obtained of the head. Using automated exposure control and adj ustment of the mA and/or kV according to patient size, radiation dose was kept as low as reasonably a chievable to obtain optimal diagnostic quality images. DICOM format image data is available electro nically for review and comparison. FINDINGS: CEREBRUM: The ventricles are normal for age. No evidence of midline shift, mass lesion, hemorrhage or acute in farction. No extra-axial fluid collections are seen. POSTERIOR FOSSA: The cerebellum and brainstem are intact. The 4th ventricle is midline. The cerebellopontine angle i s unremarkable. EXTRACRANIAL: The visualized portion of the orbits is intact. SKULL: The calvaria is intact. No evidence of skull fracture. CONCLUSION: Normal examination for a patient of this age. Angel Burton MD on June 27, 2017 at 20:51 Board Certified Radiologist. This report was verified electronically.
--- NOTE | 2017-06-27 20:59 | RADRPT ---
EXAM DATE/TIME: 06/27/2017 20:00 [facility] COMPARISON: CHEST PA & LAT, March 19, 2017, 19:27. INDICATIONS : Cough. MEDICAL HISTORY : None. SURGICAL HISTORY : None. ENCOUNTER: Initial ACUITY: 1 day PAIN SCORE: 0/10 LOCATION: Bilateral chest FINDINGS: Extensive fibrotic changes at the lung bases and left perihilar region. Chronic pleural thickening. H eart size normal. No pneumothorax. CONCLUSION: 1. Fibrotic changes in the lungs. Emphysema. No effusion or pneumothorax. Angel Burton MD on June 27, 2017 at 20:55 Board Certified Radiologist. This report was verified electronically.
[2017-06-27 21:24] VITALS: BP 111/68; PULSE 73; RESP 16; O2SAT 98
[2017-06-27 22:30] VITALS: BP 121/79; PULSE 81; RESP 16; O2SAT 96
[2017-06-27 22:50] LABS: CALCIUM 7.7 MG/DL (8.5-10.1)
[2017-06-27 22:51] LABS: BICARBONATE 24.6 MEQ/L (21.0-32.0)
[2017-06-27 22:54] LABS: CREATININE 0.5 MG/DL (0.60-1.30)
[2017-06-27 23:26] VITALS: BP 107/67
== END 2017-06-27 23:33 | disposition home or self-care (01) ==
LOC: PHED 17:05
DX: F10.10 Alcohol abuse, uncomplicated (principal); Y90.4 Blood alcohol level of 80-99 mg/100 ml; R51 Headache; E87.1 Hypo-osmolality and hyponatremia; I10 Essential (primary) hypertension; J45.909 Unspecified asthma, uncomplicated; F17.200 Nicotine dependence, unspecified, uncomplicated; Z85.118 Personal history of other malignant neoplasm of bronchus and lung; Z86.73 Personal history of transient ischemic attack (TIA), and cerebral infarction without residual deficits
CPT/HCPCS: 70450; 71045; 80053; 80307; 85025; 85610; 85730; 87804; 96361; 96374; 96375; 99285; J1885; J2765; J7030; 80048